=== PATIENT | female | born 1960 | race Caucasian/White ===

== ENCOUNTER → 2022-06-18 | Outpatient (CLI) | payer BC | END | disposition home or self-care (01) | LOC: WOUNDCARE 08:09 | PROVIDERS: ATTEND Nurse Practitioner Family | DX: I70.238 Atherosclerosis of native arteries of right leg with ulceration of other part of lower leg (principal); L97.812 Non-pressure chronic ulcer of other part of right lower leg with fat layer exposed; S81.801D Unspecified open wound, right lower leg, subsequent encounter; I87.2 Venous insufficiency (chronic) (peripheral); I15.9 Secondary hypertension, unspecified; F17.200 Nicotine dependence, unspecified, uncomplicated; X58.XXXD Exposure to other specified factors, subsequent encounter ==

== ENCOUNTER → 2022-06-25 | Outpatient (CLI) | payer BC | END | disposition home or self-care (01) | LOC: WOUNDCARE 01:58 | PROVIDERS: ATTEND Nurse Practitioner Family | DX: L97.812 Non-pressure chronic ulcer of other part of right lower leg with fat layer exposed (principal); I87.2 Venous insufficiency (chronic) (peripheral); S81.801D Unspecified open wound, right lower leg, subsequent encounter; I70.201 Unspecified atherosclerosis of native arteries of extremities, right leg; I15.9 Secondary hypertension, unspecified; F17.200 Nicotine dependence, unspecified, uncomplicated; X58.XXXD Exposure to other specified factors, subsequent encounter ==

== ENCOUNTER → 2022-06-27 | Outpatient (CLI) | payer BC | END | disposition home or self-care (01) | LOC: US 06-23 09:00 → RAD 00:18 → US 11:00 | PROVIDERS: ATTEND Nurse Practitioner Family | DX: S81.801A Unspecified open wound, right lower leg, initial encounter (principal); I87.2 Venous insufficiency (chronic) (peripheral); I70.0 Atherosclerosis of aorta; I73.9 Peripheral vascular disease, unspecified; X58.XXXA Exposure to other specified factors, initial encounter; Y93.89 Activity, other specified; Y92.89 Other specified places as the place of occurrence of the external cause; Y99.8 Other external cause status ==

== ENCOUNTER → 2022-07-02 | Outpatient (CLI) | payer BC | END | disposition home or self-care (01) | LOC: WOUNDCARE 03:17 | PROVIDERS: ATTEND Nurse Practitioner Family | DX: I70.238 Atherosclerosis of native arteries of right leg with ulceration of other part of lower leg (principal); L97.812 Non-pressure chronic ulcer of other part of right lower leg with fat layer exposed; S81.801D Unspecified open wound, right lower leg, subsequent encounter; I87.2 Venous insufficiency (chronic) (peripheral); I15.9 Secondary hypertension, unspecified; F17.200 Nicotine dependence, unspecified, uncomplicated; X58.XXXD Exposure to other specified factors, subsequent encounter ==

== ENCOUNTER 2022-07-03 14:48 | Emergency (ER) | payer OTHER, BC ==
[~2022-07-03] VITALS: Wt 104.3 kg
== END 2022-07-03 20:37 | disposition home or self-care (01) ==
LOC: ED 14:48
DX: S92.355A Nondisplaced fracture of fifth metatarsal bone, left foot, initial encounter for closed fracture (principal); S92.109A Unspecified fracture of unspecified talus, initial encounter for closed fracture; W18.39XA Other fall on same level, initial encounter; Y93.89 Activity, other specified; Y92.89 Other specified places as the place of occurrence of the external cause; Y99.8 Other external cause status

== ENCOUNTER → 2022-07-10 | Outpatient (CLI) | payer BC | END | disposition home or self-care (01) | LOC: WOUNDCARE 00:44 | PROVIDERS: ATTEND Nurse Practitioner Family | DX: I70.238 Atherosclerosis of native arteries of right leg with ulceration of other part of lower leg (principal); L97.812 Non-pressure chronic ulcer of other part of right lower leg with fat layer exposed; S81.801D Unspecified open wound, right lower leg, subsequent encounter; I87.2 Venous insufficiency (chronic) (peripheral); I15.9 Secondary hypertension, unspecified; F17.200 Nicotine dependence, unspecified, uncomplicated; X58.XXXD Exposure to other specified factors, subsequent encounter ==

== ENCOUNTER → 2022-07-17 | Outpatient (CLI) | payer BC | END | disposition home or self-care (01) | LOC: WOUNDCARE 07:05 | PROVIDERS: ATTEND Nurse Practitioner Family | DX: S81.801D Unspecified open wound, right lower leg, subsequent encounter (principal); I87.2 Venous insufficiency (chronic) (peripheral); I70.201 Unspecified atherosclerosis of native arteries of extremities, right leg; I15.9 Secondary hypertension, unspecified; F17.200 Nicotine dependence, unspecified, uncomplicated; X58.XXXD Exposure to other specified factors, subsequent encounter ==

== ENCOUNTER → 2022-07-23 | Outpatient (CLI) | payer BC | END | disposition home or self-care (01) | LOC: WOUNDCARE 00:23 | PROVIDERS: ATTEND Nurse Practitioner Family | DX: I70.238 Atherosclerosis of native arteries of right leg with ulceration of other part of lower leg (principal); L97.812 Non-pressure chronic ulcer of other part of right lower leg with fat layer exposed; S81.801D Unspecified open wound, right lower leg, subsequent encounter; I15.9 Secondary hypertension, unspecified; I87.2 Venous insufficiency (chronic) (peripheral); F17.200 Nicotine dependence, unspecified, uncomplicated; X58.XXXD Exposure to other specified factors, subsequent encounter ==

== ENCOUNTER → 2022-07-29 | Outpatient (CLI) | payer BC | END | disposition home or self-care (01) | LOC: CT 00:46 | PROVIDERS: ATTEND Nurse Practitioner Family | DX: S81.801A Unspecified open wound, right lower leg, initial encounter (principal); L03.115 Cellulitis of right lower limb; X58.XXXA Exposure to other specified factors, initial encounter; Y93.89 Activity, other specified; Y92.89 Other specified places as the place of occurrence of the external cause; Y99.8 Other external cause status ==

== ENCOUNTER → 2022-08-06 | Outpatient (CLI) | payer BC | END | disposition home or self-care (01) | LOC: WOUNDCARE 01:44 | PROVIDERS: ATTEND Nurse Practitioner Family | DX: I70.238 Atherosclerosis of native arteries of right leg with ulceration of other part of lower leg (principal); L97.812 Non-pressure chronic ulcer of other part of right lower leg with fat layer exposed; S81.801D Unspecified open wound, right lower leg, subsequent encounter; I87.2 Venous insufficiency (chronic) (peripheral); I15.9 Secondary hypertension, unspecified; F17.200 Nicotine dependence, unspecified, uncomplicated; X58.XXXD Exposure to other specified factors, subsequent encounter ==